=== PATIENT | male | born 1945 | race Caucasian/White ===

== ENCOUNTER 2017-07-04 12:03 | Day surgery (SDC) | payer MEDICARE ==
[~2017-07-04 12:03] MED LIST: CEFAZOLIN 1 Gram 1 GM/50 ML BAG IVPB ONE
[2017-07-04] MEDS ORDERED: PROPOFOL 10 MG/ML VIAL IV ONE (12:04)
[2017-07-04] MEDS ORDERED: MIDAZOLAM HCL 2MG/2ML VIAL IV ONE (12:04)
[2017-07-04] MEDS ORDERED: *PACU ONLY* KETAMINE HCL 10 MG/ML (20ML) VIAL IV ONE (12:04)
[2017-07-04] MEDS ORDERED: ALFENTANIL HCL 500 MCG/1ML, 2ML AMP IV ONE (12:04)
--- NOTE | 2017-07-05 13:30 | Operative Note ---
DATE OF SURGERY: 07/04/2017 PREOPERATIVE DIAGNOSIS: Elevated PSA with urinary urgency and frequency. POSTOPERATIVE DIAGNOSIS: Elevated PSA, urinary urgency and frequency, and urethral stricture. OPERATION: Cystoscopy, urethral dilation, and transrectal ultrasound-guided biopsy of the prostate. Anesthesia: Sedation. Indication: A 72-year-old male with the above complaints, who presents for further cystoscopic evaluation along with prostate biopsies. We discussed the procedure in detail, including potential risk of pain and bleeding, sepsis, worsening of voiding symptoms, among others, and he understands and wishes to proceed. PROCEDURE: Preop informed consent was obtained. For antibiotics he received Ancef as well as 3 days of Levaquin. He was brought to the operating room and placed supine, and the genitalia were prepped and draped sterilely. Time out was performed. Flexible cystoscopy was performed. The anterior urethra appears unremarkable to the level of the proximal bulbar urethra where a very tight anular stricture was seen. I could not advance the cystoscope through the stricture and, therefore, a guidewire was advanced through the stricture into the bladder, and Mcelroy dilators were passed over the wire to dilate the stricture effectively. This then allowed me to advance the cystoscope into the prostate, which showed moderate lateral lobe obstruction. The bladder was entered and inspected systematically. No other bladder abnormality was seen, and the ureteral orifice had normal appearance and positioning. Scope was then withdrawn, leaving the bladder partially filled, and the patient was placed in left lateral decubitus position. Transrectal ultrasound was then performed. Measurements of the prostate gland revealed a calculated volume of 53 ml. Biopsies were taken from the prostate in a systemic fashion, sampling the face, mid and apex of the gland both medially and laterally on the left and right sides for a total of 12 biopsy samples taken. There was minimal rectal bleeding at the end of the procedures, and digital pressure was placed right on the prostate. The procedure was then terminated. The patient was awake and transferred to recovery in stable condition. PLAN: Patient will follow up in about 2 weeks in [facility] [place] to review biopsy results and to discuss my cystoscopic findings today and if there is any further intervention needed if the biopsies prove to be negative. CC: Liv Bassett
== END 2017-07-04 15:36 | disposition home or self-care (01) ==
LOC: SUR 12:03
PROVIDERS: ATTEND Urology
DX: N41.1 Chronic prostatitis (principal); R35.0 Frequency of micturition; R39.15 Urgency of urination; I10 Essential (primary) hypertension
CPT/HCPCS: 76942; 93005; 93010; 55700; 00902; C1769; J0690